=== PATIENT | female | born 1990 | race Caucasian/White ===

== ENCOUNTER 2016-04-23 22:38 | Emergency (ER) | payer OTHER ==
[~2016-04-23] VITALS: Ht 154.9 cm; Wt 94.0 kg
[~2016-04-23 22:38] MED LIST: ACET500C5 PO; GUAI120S26 PO
[2016-04-23 22:39] VITALS: Ht 154.9 cm; Wt 94.0 kg
[2016-04-24] MEDS ORDERED: OSLT75C PO (00:40)
[2016-04-24] MEDS ORDERED: D-ME473S18 PO (00:41)
--- NOTE | 2016-04-24 00:44 | ERD ---
ER Documentation Chief Complaint Date/Time DATE: 04/24/16 TIME: 00:42 Chief Complaint cough with yellow sputum, body aches, fever, congestion since Friday. HPI This is a 26-year-old female presents to the ER with a cough, body ache, fever, nasal congestion since yesterday. Patient denies any chest pain or shortness of breath. There are no sick contacts at home. She denies any urinary symptoms she denies any nausea vomiting diarrhea. Patient has not taken anything for her symptoms. ROS 12 point review of systems was done, all negative except per HPI. Medications Home Meds Active Scripts Dextromethorphan Hb-Promethazine Hcl (Promethazine DM Syrup) 473 Ml Syrup, 10 ML PO Q6H Y for COUGH, #4 OZ Prov:LOLIS BANEGAS 04/24/16 Oseltamivir Phosphate* (Tamiflu*) 75 Mg Capsule, 75 MG PO BID for 5 Days, CAP Prov:BASSAMLOLIS C 04/24/16 Acetaminophen* (Tylophen*) 500 Mg Capsule, 1 CAP PO Q6H Y for PAIN AND OR ELEVATED TEMP, #30 CAP Prov:J LUIS ORTIZ PA-C 04/08/16 Fwymhhoglfl-G-Xchajlfcjd Hb* (Guaifenesin* DM Syrup) 120 Ml Syrup, 10 ML PO Q4H Y for COUGH, #120 ML Prov:J LUIS ORTIZ PA-C 04/08/16 Allergies Allergies: Coded Allergies: No Known Allergy (Unverified , 04/08/16) PMhx/Soc Medical and Surgical Hx: pt denies Medical Hx History of Surgery: Yes (hand surgery) Anesthesia Reaction: No Hx Neurological Disorder: No Hx Respiratory Disorders: No Hx Cardiac Disorders: No Hx Psychiatric Problems: No Hx Miscellaneous Medical Probl: No Hx Alcohol Use: Yes (socially) Hx Substance Use: No Hx Tobacco Use: No Smoking Status: Never smoker Physical Exam Vitals Vital Signs Date Time Temp Pulse Resp B/P Pulse Ox O2 Delivery O2 Flow Rate FiO2 04/23/16 22:39 98.4 79 20 125/70 99 Physical Exam GENERAL: The patient is well-developed, well-nourished, in no acute distress. NECK: Cervical spine is non tender with no step off. Supple, no nuchal rigidity HEENT: Atraumatic. Pupils equal, round and reactive to light. Extraocular muscles are grossly intact. Conjunctivae pink, no discharge. Bilateral tympanic membranes are clear with no evidence of erythema, effusion or dulling of the light reflex. Tonsilar erythema with no exudates or uvular deviation. Clear rhinorrhea. RESPIRATORY: Clear to auscultation bilaterally. There are no rales, wheezes or rhonchi. HEART: Regular rate and rhythm. No murmurs, clicks, rubs or gallops. EXTREMITIES: No clubbing or cyanosis. Full range of motion. Grossly neurovascularly intact. NEUROLOGIC: Alert and oriented. Cranial nerves II through XII are intact. SKIN: There is no rash. The skin is warm and dry. GENERAL: The patient is well-developed, well-nourished, in no acute distress. NECK: Cervical spine is non tender with no step off. Supple, no nuchal rigidity HEENT: Atraumatic. Pupils equal, round and reactive to light. Extraocular muscles are grossly intact. Conjunctivae pink, no discharge. Bilateral tympanic membranes are clear with no evidence of erythema, effusion or dulling of the light reflex. Tonsilar erythema with no exudates or uvular deviation. Clear rhinorrhea. RESPIRATORY: Clear to auscultation bilaterally. There are no rales, wheezes or rhonchi. HEART: Regular rate and rhythm. No murmurs, clicks, rubs or gallops. EXTREMITIES: No clubbing or cyanosis. Full range of motion. Grossly neurovascularly intact. NEUROLOGIC: Alert and oriented. Cranial nerves II through XII are intact. SKIN: There is no rash. The skin is warm and dry. Procedures/MDM Differential diagnosis includes but is not limited to; Viral URI, allergic rhinitis, bronchitis, pertussis,pneumonia. This is likely viral in etiology. Clinical suspicion for pneumonia is low as patient appears well, is not hypoxic or in any respiratory distress. Additionally, patients physical examination is benign. Plan was discussed with patient they understand and agree. Patient needs to follow up with PCP in 1-2 days or return to ER sooner if symptoms worsen. Departure Diagnosis: Primary Impression: Upper respiratory infection Condition: Stable Patient Instructions: Preventing Common Respiratory Infections Additional Instructions: Call your primary care doctor TOMORROW for an appointment during the next 1-2 days.See the doctor sooner or return here if your condition worsens before your appointment time. LOLIS BANEGAS Apr 24, 2016 00:44
[2016-04-24 01:17] VITALS: BP 130/87; PULSE 78; RESP 18; TEMP 97.8
== END 2016-04-24 01:18 | disposition home or self-care (01) ==
LOC: FTE 22:38
DX: J06.9 Acute upper respiratory infection, unspecified (principal)
CPT/HCPCS: 99284

== ENCOUNTER 2018-12-11 14:28 | Emergency (ER) | payer OTHER ==
[~2018-12-11] VITALS: Ht 152.4 cm; Wt 90.5 kg
[~2018-12-11 14:28] MED LIST changes: +D-ME473S18 PO; +GUAI120S25 PO; -GUAI120S26 PO; +IBUP-1542 PO; +OSEL75CA23 PO
[2018-12-11 14:41] VITALS: Ht 152.4 cm; Wt 90.5 kg
[2018-12-11] MEDS ORDERED: KETOROLAC 30 MG INJ IV STA (15:03)
[2018-12-11] MEDS ORDERED: ONDANSETRON 4 MG INJ IV STA (15:03)
[2018-12-11] MEDS ORDERED: PROCHLORPERAZINE 10 MG INJ IV STA (15:03)
[2018-12-11] MEDS ORDERED: SOD CHLORIDE 0.9% 1,000 ML IV STA (15:03)
[2018-12-11 15:56] VITALS: BP 109/68; PULSE 74; RESP 18
== END 2018-12-11 16:39 | disposition home or self-care (01) ==
LOC: FTE 14:28
DX: G44.209 Tension-type headache, unspecified, not intractable (principal)
CPT/HCPCS: 81003; 81025; 96374; 96375; J0780; J1885; J2405; J7030; Z7502